=== PATIENT | male | born 1960 | race Caucasian/White ===

== ENCOUNTER 2020-10-22 01:51 | Emergency (ER) | payer BC ==
[~2020-10-22] VITALS: Ht 172.7 cm; Wt 74.0 kg
[2020-10-22] MEDS ORDERED: normal saline 1000ML IV soln IVB ONE (02:35)
[2020-10-22] MEDS ORDERED: morphine 2 MG/ML inj. syringe IV PRN (02:40)
--- NOTE | 2020-10-22 02:52 | NUR ---
pt refused the morphine
[2020-10-22 02:55] LABS: BASOPHILS # (AUTO) 0.1 X10'3 (0-0.2); BASOPHILS % (AUTO) 0.7 % (0-1); EOSINOPHILS # (AUTO) 0.2 X10'3 (0-0.9); EOSINOPHILS % (AUTO) 1.7 % (0-6); HEMATOCRIT 43.8 % (42.0-52.0); LYMPHOCYTES # (AUTO) 2.3 X10'3 (1.1-4.8); LYMPHOCYTES % (AUTO) 21.2 % (21-51); MEAN CORPUSCULAR HEMOGLOBIN 30.7 PG (27.0-31.0); MEAN CORPUSCULAR HGB CONC 34.3 g/dL (33.0-36.5); MEAN CORPUSCULAR VOLUME 89.4 FL (78-98); MEAN PLATELET VOLUME 9.1 FL (7.4-10.4); MONOCYTES # (AUTO) 0.8 X10'3 (0-0.9); NEUTROPHILS # (AUTO) 7.7 X10'3 (1.8-7.7); NEUTROPHILS % (AUTO) 69.4 % (42-75); PLATELET COUNT 205 X10'3 (140-440); RED CELL DISTRIBUTION WIDTH 12.8 % (11.5-14.5); WHITE BLOOD COUNT 11.1 X10'3 (4.5-11.0)
[2020-10-22] MEDS ORDERED: mag hydrox/Alum hydrox/simeth 30ml oral suspension PO ONE (03:00)
[2020-10-22] MEDS ORDERED: LIDOcaine Viscous 15ml cup MM ONE (03:00)
[2020-10-22 03:08] LABS: ALANINE AMINOTRANSFERASE 58 U/L (12-78); ALBUMIN 4.4 G/DL (3.4-5.0); ALBUMIN/GLOBULIN RATIO 1.3 (1.1-1.5); ALKALINE PHOSPHATASE 57 IU/L (46-116); ANION GAP 9 (8-16); ASPARTATE AMINO TRANSFERASE 31 U/L (10-37); BILIRUBIN,TOTAL 0.3 MG/DL (0.1-1.0); BLOOD UREA NITROGEN 23 MG/DL (7-18); BUN/CREATININE RATIO 24.2 (5.4-32.0); CALCIUM 10.1 MG/DL (8.5-10.1); CHLORIDE 104 MMOL/L (99-107); CREATININE 0.95 MG/DL (0.60-1.10); GLUCOSE 105 MG/DL (70-104); POTASSIUM 4.1 MMOL/L (3.5-5.1); SODIUM 141 MMOL/L (135-145); TOTAL CARBON DIOXIDE 28.2 MMOL/L (24-32); TOTAL PROTEIN 7.7 G/DL (6.4-8.2); eGFR 80 ML/MIN
[2020-10-22] MEDS ORDERED: iohexol 300mg/ml 100ml inj. ONE (03:21)
[2020-10-22 03:40] VITALS: BP 164/96
[2020-10-22] MEDS ORDERED: LIDOcaine Viscous 15ml cup TP ONE (05:00)
[2020-10-22] MEDS ORDERED: diphenhydrAMINE 25 MG/10 ML UD oral solution PO ONE (05:00)
== END 2020-10-22 05:32 | disposition home or self-care (01) ==
LOC: ER 01:53
DX: R13.10 Dysphagia, unspecified (principal); R07.0 Pain in throat; R11.10 Vomiting, unspecified; J38.4 Edema of larynx; E78.00 Pure hypercholesterolemia, unspecified; I10 Essential (primary) hypertension; Z72.89 Other problems related to lifestyle; Z88.5 Allergy status to narcotic agent
CPT/HCPCS: 36415; 70491; 80053; 85025; 96360; 99285; J7030; Q0163; Q9967; J2270